=== PATIENT | female | born 1960 | race Caucasian/White ===

== ENCOUNTER → 2017-02-07 | Outpatient (CLI) | payer OTHER ==
[~2017-02-07] MED LIST: AMLO2.5T PO; LISI-786 PO
--- NOTE | 2017-02-08 06:11 | SPLIT NIGHT TECHNICIAN REPORT ---
[facility] Split Night Polysomnogram - Field Artillery Radar Operator Report Study date: 02/07/2017 Referring Physician: Betzy BURCH M.D. Name: CAMILLE YVROSEBetzy NOVA Field Artillery Radar Operator: MOY Escoto. Date of : 1960 Height: 57 years, Height 5' 2" Sex: Female Weight: 233 lbs Age: 57 Neck Circum: 17 in BMI: Medications: 42.61 AMLODIPINE 2.5 MG, LISINOPRIL-HYDROCHLOROTHIAZIDE 20-12.5 MG Patient History 56 yr-old female here for a baseline/split study. She has a history of loud snoring, restless sleep, and daytime sleepiness. Her [place] scale is 9. The test was started on room air. ETCO2 testing is included in this study. Room 3 Parameters Monitored NPSG: E1-M2, E2-M1, Fp1-M2, Fp2-M1, F3-M2, F4-M2, F4-M1, C3-M2, C4-M2, C4-M1, O1-M2, O2-M2, O2-M1, T3-M2, T4-M1, P3-M2, P4-M1, CHIN1, CHIN2, HR, EKG, Legs, PFLOW, SNOR, FLOW, CFLOW, Tidal Volume, THOR, ABDO, SpO2, PLTH, CPRESS, ETCO2 Wave, ETCO2, pH SLEEP SUMMARY DATA DIAGNOSTIC TREATMENT Lights Out: 8:59:01 PM 12:52:01 AM Lights On: 12:40:31 AM 5:31:01 AM Total Recording Time (TRT): 221.5 min. 279.0 min. Total Sleep Time (TST): 182.5 min. 141.0 min. NREM Time: 176.0 min. 129.5 min. REM Time: 6.5 min. 11.5 min. Sleep Period Time (SPT): 199.0 min. 222.5 min. Sleep Efficiency (SE): 82 % 51 % Sleep Latency: 22.5 min. 56.5 min. Arousal Index: 24.0 17.4 PAP Treatment Levels: 4, 8/4, 10/4, 10/6, 11/6, 11/7, 12/7, 12/8 * Optimal Pressure(s) SLEEP STAGING DATA DIAGNOSTIC TREATMENT Duration (min) TST % Duration (min) TST % Stage Wake: 39.0 min. -- 138.0 min. -- WASO: 16.5 min. -- 81.5 min. -- NREM: 176.0 min. 96 % 129.5 min. 92 % Stage N1: 41.0 min. 22 % 28.5 min. 20 % Stage N2: 121.0 min. 66 % 101.0 min. 72 % Stage N3: 14.0 min. 8 % 0.0 min. 0 % REM: 6.5 min. 4 % 11.5 min. 8 % POSITIONAL DATA Event Count Index Event Count Index Supine: 42 43.6 N/A N/A Supine NREM: 34 39.4 N/A N/A Supine REM: 8 80 N/A N/A Non-Supine: 89 42.3 56 23.8 Non-Supine NREM: 88 42.0 51 23.6 Non-Supine REM: 1 120.0 5 26.1 AROUSAL SUMMARY DATA: Event Count Index Event Count Index Apnea Arousals: 7 3.6 5 9.8 Hypopnea Arousals: 25 8.2 7 3.0 Snore Arousals: 12 3.9 6 2.6 PLM Arousals: 3 1.0 13 5.5 Non-Specific Arousals: 19 6.2 7 3.0 Total Arousals: 73 24.0 41 17.4 MYOCLONUS (PLM) Event Count Index Event Count Index PLM: 7 2.3 160 68.1 PLM AROUSAL: 3 1.0 13 5.5 PLM W/O AROUSAL 7 2.3 147 62.6 PLM W/RESP EVENT 0 0.0 5 0.0 MYOCLONUS (PLM) Event Count Index Event Count Index LM: 9 10.8 38 16.2 LM AROUSAL: 9 3.0 1 0.4 LM W/O AROUSAL LM W/RESP EVENT LM NON SPECIFIC 19 6.2 161 68.5 HEART RATE DATA DIAGNOSTIC TREATMENT Sleep (bpm): 82 78 REM (bpm): 82 88 NREM (bpm): 88 91 Tachycardia Count: 0 0 Tachycardia Duration: 0.00 0 Bradycardia Count: 0 0 Bradycardia Duration: 0.00 0 DIAGNOSTIC PORTION TREATMENT PORTION RESPIRATORY DATA Event Count Index Event Count Index AHI: -- 42.7 -- 23.8 RDI: -- 43.1 -- 24 Obstructive Apnea: 11 3.6 21 8.9 Central Apnea: 0 0.0 2 0.9 Mixed Apnea: 0 0.0 0 0.0 Hypopnea: 119 39.1 33 14.0 RERA: 1 0.3 0 0.0 Total Apneas: 11 3.6 23 9.8 RESPIRATORY DATA REM NREM SLEEP REM NREM SLEEP Supine Position: Obstructive Apneas: 6 2 8 N/A N/A N/A Central Apneas: 0 0 0 N/A N/A N/A Mixed Apneas: 0 0 0 N/A N/A N/A Hypopneas: 2 32 34 N/A N/A N/A RERA 0 0 0 N/A N/A N/A Total Supine Events: 8 34 42 N/A N/A N/A Supine AHI: 80 39.4 43.6 N/A N/A N/A Supine RDI: 80.0 39.4 43.6 N/A N/A N/A REM NREM SLEEP REM NREM SLEEP Non-Supine Position: Obstructive Apneas: 1 2 3 2 19 21 Central Apneas: 0 0 0 1 1 2 Mixed Apneas: 0 0 0 0 0 0 Hypopneas: 0 85 85 2 31 33 RERA 0 1 1 0 0 0 Total Supine Events: 1 88 89 5 51 56 Supine AHI: 120.0 42.0 42.3 26.1 23.6 23.8 Supine RDI: 120.0 42.5 42.8 26.1 23.6 23.8 OXYGEN DESTAURATION DATA: Event Count Index Event Count Index REM Desaturations: 10 92.3 11 57.4 NREM Desaturations: 184 62.7 75 34.7 SNORE DATA DIAGNOSTIC TREATMENT Snore Time: 49.3 1:48:31 AM Snore TST%: 18 20 Snore Arousal Count: 12 6 Snore Arousal Index: 3.9 2.6 Desaturation Event Summary: Minimum %SpO2 Event Count Mean/Min/Max Duration(sec.) Desaturation Index % Time In Bed > 90 352 23.7 / 9.3 / 59.8 91.2 47.7 86 - 90 134 18.7 / 9.3 / 51.0 35.6 46.5 81 - 85 6 16.4 / 10.3 / 25.5 16.8 4.4 76 - 80 0 N/A 0.0 0.7 71 - 75 0 N/A 0.0 0.4 66 - 70 0 N/A 0.0 0.2 61 - 65 0 N/A 0.0 0.1 56 - 60 0 N/A 0.0 0.0 51 - 55 0 N/A 0.0 0.0 < 50 0 N/A 0.0 0.0 OXYGEN SATURATION DATA DIAGNOSTIC TREATMENT SpO2 Mean Sleep: 88 % 90 % SpO2 Mean REM: 82 % 88 % SpO2 Mean NREM: 88 % 91 % SpO2 Minimum Sleep: 60 % 64 % SpO2 Minimum REM: 60 % 64 % SpO2 Minimum NREM: 69 % 70 % Time Below 90% (TST): 123.1 35.4 Time Below 88% (TST): 60.3 9.0 Total REM NREM Awake <50% 0.0 min. 0.0 min. 0.0 min. 0.0 min. 51 - 60% 0.1 min. 0.1 min. 0.0 min. 0.0 min. 61 - 70% 1.3 min. 1.0 min. 0.1 min. 0.2 min. 71 - 80% 5.3 min. 2.4 min. 2.2 min. 0.7 min. 81 - 90% 247.5 min. 10.2 min. 196.3 min. 41.0 min. 91 - 100% 231.6 min. 4.4 min. 106.8 min. 120.4 min. Average 90 86 89 93 Minimum SpO2 60 60 69 66 Desaturation Event Index 48.4 70.0 50.9 43.7 # Desat. Events below 89% 284 20 226 38 Time(%) with Saturation below 89% 25.6 1.9 21.1 2.6 Time(min.) with Saturation below 89% 124.4 9.2 102.6 12.7 Recording [employer] Radar Operator Comments: Ms. Reid slept in the right, left, supine and prone positions. Occasional PVCs were noted. PLMs were noted. No bruxism noted. Snoring was noted and scored as a 2 on a scale of 1 through 5. (0=no snoring, 5=snoring loud enough to be heard through a closed door or down the brown way). At 12:49, she met specific Split-Night criteria during the diagnostic portion of this study. CPAP was initiated at +4 CMH2O. She then stated that she did not feel as though she had enough air. The pressure was then increased to 6 CMH2O, but she had difficulty breathing out against that pressure. She was then switched to BiPAP at +8/4 CMH2O and up-titrated to a level of +12/8 CMH2O. A Quattro Air full face mask size small from [employer] was used during titration. She awoke to use the restroom one time during the night. Ms. Reid stated that she is unsure of how she slept. The final report will be interpreted and signed by a sleep physician. The completed physician report will then be placed in the patient medical record. Therapy Event: Therapy (cm H20) 0 4 05/12 07/12 07/14 08/14 08/15 09/14 09/15 Total Time at Pressure (min.) 221.5 38.9 81.7 22.7 35.6 6.9 59.0 9.3 24.8 TST at Pressure (min.) 182.5 0.0 4.6 8.2 34.6 6.9 52.5 9.3 24.8 # Periods 1 1 1 1 1 1 1 1 1 Sleep Onset (min.) 22.5 N/A 17.6 0.0 0.0 0.0 0.0 0.0 0.0 REM Onset (min.) 152.0 N/A N/A N/A N/A N/A 5.1 N/A 23.3 Sleep Efficiency % 82 0 5 36 97 100 89 100 100 Wakefulness (%) 17.6 100.0 94.3 63.8 2.8 0.0 11.0 0.0 0.0 Wakefulness (min.) 39.0 38.9 77.1 14.5 1.0 0.0 6.5 0.0 0.0 NREM 1 (%) 18.5 0.0 5.7 34.6 5.6 0.0 22.0 0.0 4.0 NREM 1 (min.) 41.0 0.0 4.6 7.9 2.0 0.0 13.0 0.0 1.0 NREM 2 (%) 54.6 0.0 0.0 1.6 91.6 100.0 50.0 100.0 89.9 NREM 2 (min.) 121.0 0.0 0.0 0.4 32.6 6.9 29.5 9.3 22.3 NREM 3 (%) 6.3 0.0 0.0 0.0 0.0 0.0 0.0 0.0 0.0 NREM 3 (min.) 14.0 0.0 0.0 0.0 0.0 0.0 0.0 0.0 0.0 REM (%) 2.9 0.0 0.0 0.0 0.0 0.0 17.0 0.0 6.1 REM (min.) 6.5 0.0 0.0 0.0 0.0 0.0 10.0 0.0 1.5 # Arousals 73 N/A 9 10 1 0 16 2 3 Arousal Index 24.0 N/A 116.6 72.9 1.7 0.0 18.3 12.8 7.3 # Snore 1,767 N/A 20 24 120 28 299 55 228 Snore Index 580.9 N/A 259.0 175.0 207.8 243.1 342.0 353.1 552.3 AHI 42.7 N/A 77.7 65.6 10.4 60.8 13.7 64.2 14.5 AHI Supine 43.6 N/A N/A N/A N/A N/A N/A N/A N/A AHI Non-Supine 42.3 N/A 77.7 65.6 10.4 60.8 13.7 64.2 14.5 NREM AHI 41.3 N/A 77.7 65.6 10.4 60.8 11.3 64.2 12.9 REM AHI 83.1 N/A N/A N/A N/A N/A 24.0 N/A 40.0 RDI 43.1 N/A 77.7 65.6 10.4 60.8 13.7 64.2 14.5 # Obstructive 11 N/A 0 4 0 6 6 5 0 # Central Ap 0 N/A 0 0 0 0 0 0 2 # Mixed 0 N/A 0 0 0 0 0 0 0 # Hypopneas 119 N/A 6 5 6 1 6 5 4 RERAS 1 N/A 0 0 0 0 0 0 0 Total Respiratory Events 131 N/A 6 9 6 7 12 10 6 Time Below SpO2 89.00% (min.) 94.0 0.0 0.9 1.6 3.2 1.5 7.3 1.0 2.2 Mean NREM SpO2 (%) 88 N/A 91 92 90 90 90 91 91 Mean REM SpO2 (%) 82 N/A N/A N/A N/A N/A 88 N/A 86 Mean Sleep SpO2 (%) 88 N/A 91 92 90 90 90 91 91 Min NREM SpO2 (%) 69 N/A 86 84 86 82 70 85 87 Min REM SpO2 (%) 60 N/A N/A N/A N/A N/A 64 N/A 78 Position Supine (min.) 57.8 0.0 0.0 0.0 0.0 0.0 0.0 0.0 0.0 Position Non-supine (min.) 124.7 0.0 4.6 8.2 34.6 6.9 52.5 9.3 24.8 LM Index Sleep 13.2 N/A 38.9 58.3 95.2 104.2 90.3 96.3 63.0 LM Index NREM 13.3 N/A 38.9 58.3 95.2 104.2 104.6 96.3 67.0 LM Index REM 9.2 N/A N/A N/A N/A N/A 30.0 N/A 0.0 Mean Heart Rate (bpm) 82 N/A 75 73 77 75 79 77 78 Min Heart Rate (bpm) 62 N/A 69 63 66 66 58 69 63 CPAP REPORT Therapy Detail Time / Page # Comment CPAP 4 cm H2O Full Face Mask Flex Pressure Relief Humidifier on 12:49:47 AM / pg. 521 SHE HAS BEEN ASLEEP FOR OVER 2 HOURS AND HER AHI IS ABOVE 40 BiLevel 8/4 cm H2O Full Face Mask Flex Pressure Relief Humidifier on 1:30:58 AM / pg. 603 AFTER USING THE RESTROOM, SHE STATED THAT SHE WAS HAVING TROUBLE GETTING ENOUGH AIR. INITIALLY THE PRESSURE WAS INCREASED TO 6 CM AND THEN CHANGED TO 8/4CM ON BIPAP FOR HER COMFORT BiLevel 10/4 cm H2O Full Face Mask Flex Pressure Relief Humidifier on 2:52:39 AM / pg. 767 INCREASED IPAP FOR HYPOPNEAS AND TO TRY TO KEEP HER ASLEEP BiLevel 10/6 cm H2O Full Face Mask Flex Pressure Relief Humidifier on 3:15:23 AM / pg. 812 INCREASED EPAP FOR APNEAS BiLevel 11/6 cm H2O Full Face Mask Flex Pressure Relief Humidifier on 3:51:02 AM / pg. 884 INCREASED IPAP FOR SNORING AND HYPOPNEAS BiLevel 11/7 cm H2O Full Face Mask Flex Pressure Relief Humidifier on 3:57:56 AM / pg. 897 INCREASED EPAP FOR APNEAS BiLevel 12/7 cm H2O Full Face Mask Flex Pressure Relief Humidifier on 4:56:54 AM / pg. 1015 INCREASED IPAP FOR HYPOPNEAS BiLevel 12/8 cm H2O Full Face Mask Flex Pressure Relief Humidifier on 5:06:15 AM / pg. 1034 INCREASED EPAP FOR APNEAS
--- NOTE | 2017-02-23 07:54 | POLYSOMNOGRAPH REPORT ---
SLEEP STUDY STONEHAND: Stacia Dickens. INTERPRETING PHYSICIAN: Dr. Josep Marin. Ms. Reid is a 57-year-old female sent for baseline split night sleep study. She has a history of loud snoring, restlessness and daytime sleepiness. Her [place] sleepiness scale score on the evening of this study is 9. BMI is 42.61. Following the technical and digital specifications of the [place] [employer] (AASM) a standard diagnostic polysomnogram was performed monitoring EEG, EOG, EMG (chin and leg deviations), oxygen saturation, body position, digital video, respiratory effort and airflow. The sleep Stage and event scoring was based on the AASM Manual for the Scoring of Sleep and Associated Events 2007 edition. Apneas are defined as a drop in the peak thermal sensor excursion by >90% of baseline for at least 10 seconds. Hypopneas were scored using the 4% oxygen desaturation rule (4A-[employer]) and a decrease in the nasal pressure excursions by >30% of baseline for at least 10 seconds. Respiratory effort-related arousal (RERA's) is defined as a sequence of breaths lasting at least 10 seconds characterized by increasing respiratory effort or flattening of the nasal pressure waveform leading to an arousal from sleep when the sequence of breaths does not meet criteria for an apnea or hypopnea. Apnea Hypopnea index (AHI) is defined as the number of apneas and hypopneas occurring in an hour of sleep. Respiratory disturbance index (RDI) is defined as the number of apneas, hypopneas, and RERA's occurring in an hour of sleep. Ms. Reid did qualify for a split night sleep study. She was observed for 182.5 minutes of sleep time. During that time, she had 22% N1 sleep, 66% N2 sleep, 8% N3 sleep and 4% REM. There were 73 arousals from sleep. 19 of these arousals were nonspecific, 3 were due to periodic limb movements, 12 were due to snoring and the remaining 32 were due to respiratory events. During observation, there were 7 periodic limb movements, 3 of which resulted in arousals. Mean saturation during observation was 88% with respiratory event during REM to 60%. There were 11 obstructive apneas, no central and no mixed apneas as well 419 hypopneas. Pretreatment apnea-hypopnea index was 42.7. Therefore, at 1:00 a.m., this patient was started on CPAP therapy. She was titrated from a CPAP pressure of 4 to a CPAP pressure of 6. She felt like she is having trouble breathing on CPAP therapy and then was switched to bilevel therapy. Over the remainder of the night, she was titrated from a BIPAP pressure of 8/4-12/8. She was observed on a pressure of 12/8 for 24.8 minutes of sleep time, 1.5 of those minutes was spent in REM sleep. There were 4 hypopneas and 2 central apneas on this pressure. Saturations were less than 89% for 2.2 minutes of recording time. IMPRESSION AND PLAN: A 57-year-old female with evidence of severe sleep apnea and very significant nocturnal hypoxemia on this split night sleep study. The titration portion of the study was incomplete; however, it appears that this patient did not tolerate CPAP therapy and would be best on bilevel therapy of at least an IPAP of 12 and a EPAP of 8. I think I would place her on auto titrating BIPAP with a minimum EPAP of 8 and a maximum pressure of 20 with a pressure support of 4 and then a download from her machine can be reviewed in 1 month to check compliance as well as AHI and further pressure adjustments can occur at that time.
== END | disposition home or self-care (01) ==
LOC: C.NEUR 21:00
PROVIDERS: ATTEND Family Medicine
DX: F51.11 Primary hypersomnia (principal); R06.83 Snoring; F17.200 Nicotine dependence, unspecified, uncomplicated; G25.81 Restless legs syndrome; G47.61 Periodic limb movement disorder; E66.01 Morbid (severe) obesity due to excess calories; G47.30 Sleep apnea, unspecified; R09.02 Hypoxemia